=== PATIENT | male | born 1955 | race Caucasian/White ===

== ENCOUNTER → 2017-11-19 11:09 | Outpatient (CLI) | payer BC, SELFPAY ==
--- NOTE | 2017-11-19 11:11 | DI.RAD.S_ITS ---
PROCEDURE: XR FOOT LT MIN 3V INDICATIONS: L foot pain three weeks after fall TECHNIQUE: 3 views of the foot were acquired. COMPARISON: None. FINDINGS: Bones: No fractures or dislocations. No suspicious bony lesions. Soft tissues: No tibiotalar joint effusion. Achilles tendon appears normal. IMPRESSION: No displaced fracture seen. If there is continued pain, followup exam or additional imaging such as MRI or CT could be performed for further assessment. Dictated by: Shaw Rojas [facility] Interpreted: Dustin Rothman MD on 11/19/2017 at 11:44 Approved by: Dsutin Rothman M.D. on 11/19/2017 at 13:45
== END ==
PROVIDERS: Family Provider Internal Medicine; PCP Internal Medicine; Visit Provider Nurse Practitioner Family
DX: M79.672 Pain in left foot (principal)
CPT/HCPCS: 73630

== ENCOUNTER → 2017-12-05 09:26 | Outpatient (CLI) | payer BC, SELFPAY ==
[2017-12-05 10:16] LABS: Alanine Aminotransferase 33 IU/L (21-72); Albumin 4.1 g/dL (3.5-5.0); Albumin Globulin Ratio 1.4 (1.0-2.8); Alkaline Phosphatase 80 U/L (38-126); Aspartate Aminotransferase 23 IU/L (17-59); Bilirubin Total 0.6 mg/dL (0.2-1.3); Blood Urea Nitrogen 16 mg/dL (9-20); Calcium 9.7 mg/dL (8.4-10.2); Carbon Dioxide 30 mmol/L (22-32); Chloride 103 mmol/L (98-107); Cholesterol 143 mg/dL (140-199); Estimated Glomerular Filt Rate > 60.0 mL/min (>60); Globulin 2.9 g/dL (1.7-4.1); Glucose 99 mg/dL (80-110); HDL Cholesterol 52 mg/dL (40-60); HEMOLYSIS < 15 (0-50); LDL Cholesterol Calculated 62 mg/dL (<100); Potassium 4.9 mmol/L (3.4-5.1); Sodium 143 mmol/L (137-145); Triglycerides 143 mg/dL (35-150)
[2017-12-05 10:46] LABS: Prostate Specific Antigen Scrn 1.82 ng/mL (0.1-4.0)
== END ==
PROVIDERS: Family Provider Internal Medicine; PCP Internal Medicine; Visit Provider Internal Medicine
DX: E78.2 Mixed hyperlipidemia (principal); I10 Essential (primary) hypertension; I25.10 Atherosclerotic heart disease of native coronary artery without angina pectoris; Z12.5 Encounter for screening for malignant neoplasm of prostate
CPT/HCPCS: 36415; 80053; 80061; G0103

== ENCOUNTER → 2018-11-26 08:11 | Outpatient (CLI) | payer BC, SELFPAY ==
[2018-11-26 09:11] LABS: Add Manual Diff / Slide Review NO; Basophils Absolute Auto 0 /uL (0-100); Basophils Percent Auto 0.4 % (0-2); Eosinophils Absolute Auto 200 /uL (0-450); Eosinophils Percent Auto 3.4 % (2-4); Hematocrit 46.9 % (41-53); Lymphocytes Absolute Auto 1500 /uL (1100-4500); Mean Corpuscular HGB Conc 34.2 % (30-36); Mean Corpuscular Hemoglobin 30.7 PG (26-34); Mean Corpuscular Volume 89.8 fL (80-100); Monocytes Absolute Auto 700 /uL (0-900); Monocytes Percent Auto 12.2 % (3-14); Neutrophils Absolute Auto 3000 /uL (1500-7000); Platelet Count 230 X10^3/uL (150-400); Red Blood Cell Count 5.22 X10^6/uL (4.5-5.9); Red Cell Distribution Width 13.8 % (11.6-14.8); White Blood Cell Count 5.3 X10^3/uL (4.5-11.0)
[2018-11-26 09:41] LABS: BUN Creatinine Ratio 15.8 (6-22); Blood Urea Nitrogen 19 mg/dL (9-20); Calcium 9.9 mg/dL (8.4-10.2); Carbon Dioxide 30 mmol/L (22-32); Chloride 100 mmol/L (98-107); Estimated Glomerular Filt Rate > 60.0 mL/min (>60); Glucose 97 mg/dL (80-110); HEMOLYSIS < 15 (0-50); Potassium 4.2 mmol/L (3.4-5.1); Sodium 140 mmol/L (137-145)
== END ==
PROVIDERS: PCP Internal Medicine; Visit Provider Internal Medicine
DX: E78.2 Mixed hyperlipidemia (principal); I10 Essential (primary) hypertension; I25.10 Atherosclerotic heart disease of native coronary artery without angina pectoris
CPT/HCPCS: 36415; 80048; 85025

== ENCOUNTER → 2018-12-08 11:22 | Outpatient (CLI) | payer BC, SELFPAY ==
[2018-12-08 13:13] LABS: Prostate Specific Antigen Scrn 2.08 ng/mL (0.1-4.0)
== END ==
PROVIDERS: PCP Internal Medicine; Visit Provider Internal Medicine
DX: Z12.5 Encounter for screening for malignant neoplasm of prostate (principal)
CPT/HCPCS: 36415; G0103

== ENCOUNTER → 2018-12-10 08:37 | Outpatient (CLI) | payer BC, SELFPAY ==
--- NOTE | 2018-12-10 08:38 | DI.US.S_ITS ---
PROCEDURE: US CAROTID DOPPLER BI INDICATIONS: PARASTHESIA TECHNIQUE: Color and pulse Doppler interrogation was performed of both carotid systems, with image documentation and velocity measurements. COMPARISON: None. FINDINGS: Stenosis calculations are based on SRU (Society of Radiologists in Ultrasound) criteria. Right side: Brachial blood pressure: 132/90 mm Hg. Common carotid artery peak systolic velocity: 82 cm/sec. Internal carotid artery peak systolic velocity: 55 cm/sec. Internal carotid artery end diastolic velocity: 22 cm/sec. External carotid artery peak systolic velocity: 78 cm/sec. ICA/CCA peak systolic ratio: 0.7. Dawson scale imaging description: Mild echogenic plaques at the bifurcation Percent internal carotid artery stenosis: Less than 50%. Vertebral artery: Flow direction is antegrade. Left side: Brachial blood pressure: 123/87 mm Hg. Common carotid artery peak systolic velocity: 95 cm/sec. Internal carotid artery peak systolic velocity: 67 cm/sec. Internal carotid artery end diastolic velocity: 26 cm/sec. External carotid artery peak systolic velocity: 85 cm/sec. ICA/CCA peak systolic ratio: 0.7 Dawson scale imaging description: Mild echogenic plaques at the bifurcation. Percent internal carotid artery stenosis: Less than 50%. Vertebral artery: Flow direction is antegrade. IMPRESSION: 1. Less than 50% internal carotid artery stenosis bilaterally. Dictated by: Alex Rodriguez M.D. on 12/10/2018 at 11:15 Approved by: Alex Rodriguez M.D. on 12/10/2018 at 11:18
== END ==
PROVIDERS: PCP Internal Medicine; Visit Provider Internal Medicine
DX: I65.23 Occlusion and stenosis of bilateral carotid arteries (principal); I25.10 Atherosclerotic heart disease of native coronary artery without angina pectoris; R20.2 Paresthesia of skin
CPT/HCPCS: 93880

== ENCOUNTER → 2019-01-11 10:24 | Outpatient (CLI) | payer BC, SELFPAY ==
--- NOTE | 2019-01-11 10:26 | DI.NM.S_ITS ---
PROCEDURE: UT DEVONTE PERF SPECT REST & STR Rest and exercise myocardial perfusion SPECT with gated imaging and ejection fraction RADIOPHARMACEUTICAL: 11.6 mCi Tc-99m sestamibi IV at rest and 26.7 mCi Tc-99m sestamibi IV at peak exercise. A two day-protocol was performed. INDICATIONS: dyspnea on exertion TECHNIQUE: Radiopharmaceutical was injected at peak stress test, and also at rest. SPECT images were obtained. SPECT myocardial perfusion images were displayed in short axis, horizontal long axis, and vertical long axis views. Gated images were reviewed using ReferStar software. COMPARISON: [place], [place], MYOCARDIAL PERFUSION, 09/23/2008, 13:44. CARDIAC STRESS: A standard Wero treadmill exercise tolerance test was performed by the patient under the supervision of an attending staff. The patient exercised for 7 minutes and 6 seconds; functional aerobic impairment (MARIO) is +15% suggesting reduced exercise tolerance. Hemodynamic data: There is normal blood pressure and heart rate response to exercise stress. Patient achieved 97% of maximum predicted heart rate at peak exercise. Symptoms: Patient denied chest pain during exercise. EKG: No diagnostic EKG changes of ischemia; frequent PVCs during recovery. FINDINGS: Raw data: There is good myocardial labeling by radiotracer. No significant motion artifacts. Left ventricle function: Gated images demonstrate normal left ventricle wall thickening. No segmental wall motion abnormality. No transient ischemic dilation; TID is 0.66 (normal less than 1.3). The left ventricle resting end-diastolic volume is 66 mL. Left ventricle stress ejection fraction is 83%; normal values are above 45%. Myocardial perfusion: There is a mildly intense fixed defect in the basal inferior wall and basal inferolateral wall that persists on prone imaging suggesting prior infarct. No ischemia. SSS 1. IMPRESSION: Abnormal treadmill nuclear stress test, consistent with prior infarction. No ischemia. 1) There is a mildly intense fixed defect in the basal inferior wall and basal inferolateral wall that persists on prone imaging suggesting prior infarct. No ischemia. SSS 1. 2) Normal left ventricular size, wall motion, and systolic function (EF post stress 83%). 3) No angina during the study. 4) No ECG evidence of ischemia. Frequent PVCs during recovery. 5) Reduced exercise tolerance (10.1 METS, MARIO +15% on active scale). Target heart rate reached. 6) Resting BP 118/76mmHg and max BP 200/96mmHg suggesting higher than normal BP response with exercise. 7) Compared to the nuclear stress test 09/23/2008, no significant change. Dictated by: Michael Dhaliwal MD on 01/11/2019 at 16:43 Approved by: Michael Dhaliwal MD on 01/11/2019 at 16:50
--- NOTE | 2019-01-11 15:29 | PM.TREADMILL ---
Cardiac Stress Test Report Referral & Results Date Patient Seen: 01/11/19 Requesting provider: Ralph Knight Indication: Dyspnea, known coronary disease Rest ECG: Unremarkable Procedure Note: Today following both written and verbal informed consent the patient was exercised according to a standard Wero protocol patient went for a total of 7 minutes 6 seconds achieving a maximum heart rate of 150 for maximum systolic blood pressure of 200. This is approximately 10.1 METS. Exercise was terminated at this point because of targets were met. Patient was also given Cardiolite through a previously started Hep-Lock IV by the diagnostic imaging staff approximately 1 minute prior to the cessation of exercise. There are no ST-T segment changes Patient was quickly hypertensive Normal heart rate response Occasional PVCs including brief runs of ventricular trigeminy Functional aerobic impairment rated about 10% of the sedentary scale Impression: No ECG evidence of ischemia Please see perfusion imaging report for further details regarding possible ischemia Slightly hypertensive response as above Please note: Actual ECG tracings can be found in the PACS system.
== END ==
PROVIDERS: PCP Internal Medicine; Visit Provider Internal Medicine
DX: I25.10 Atherosclerotic heart disease of native coronary artery without angina pectoris (principal); R06.09 Other forms of dyspnea; I25.2 Old myocardial infarction; R94.39 Abnormal result of other cardiovascular function study
CPT/HCPCS: 78452; 93016; 93017; 93018; A9502

== ENCOUNTER → 2020-10-18 09:21 | Outpatient (CLI) | payer BC, SELFPAY ==
[2020-10-18 10:26] LABS: Alanine Aminotransferase 33 IU/L (<50); Albumin 4.2 g/dL (3.5-5.0); Albumin Globulin Ratio 1.4 (1.0-2.8); Alkaline Phosphatase 95 U/L (38-126); Aspartate Aminotransferase 35 IU/L (17-59); BUN Creatinine Ratio 15.8 (6-22); Bilirubin Total 0.6 mg/dL (0.2-1.3); Blood Urea Nitrogen 18 mg/dL (9-20); Calcium 9.8 mg/dL (8.4-10.2); Carbon Dioxide 27 mmol/L (22-32); Chloride 105 mmol/L (98-107); Cholesterol 170 mg/dL (140-199); Estimated Glomerular Filt Rate > 60.0 mL/min (>60); Glucose 103 mg/dL (80-110); HDL Cholesterol 49 mg/dL (40-60); HEMOLYSIS < 15 (0-50); LDL Cholesterol Calculated 88 mg/dL (<100); Potassium 4.6 mmol/L (3.4-5.1); Sodium 138 mmol/L (137-145); Total Protein 7.2 g/dL (6.3-8.2); Triglycerides 164 mg/dL (35-150)
[2020-10-18 10:54] LABS: Prostate Specific Antigen Scrn 1.94 ng/mL (0.1-4.0)
== END ==
PROVIDERS: PCP Internal Medicine; Referring Provider Internal Medicine; Visit Provider Internal Medicine
DX: E78.2 Mixed hyperlipidemia (principal); I10 Essential (primary) hypertension; I25.10 Atherosclerotic heart disease of native coronary artery without angina pectoris; Z12.5 Encounter for screening for malignant neoplasm of prostate
CPT/HCPCS: 36415; 80053; 80061; G0103

== ENCOUNTER → 2022-01-17 08:38 | Outpatient (CLI) | payer MEDICARE, BC, SELFPAY ==
[2022-01-17 10:52] LABS: Alanine Aminotransferase 29 IU/L (<50); Albumin 4.2 g/dL (3.5-5.0); Albumin Globulin Ratio 1.7 (1.0-2.8); Alkaline Phosphatase 88 U/L (38-126); Aspartate Aminotransferase 29 IU/L (17-59); BUN Creatinine Ratio 12.4 (6-22); Bilirubin Total 0.7 mg/dL (0.2-1.3); Blood Urea Nitrogen 14 mg/dL (9-20); Calcium 9.2 mg/dL (8.4-10.2); Carbon Dioxide 27 mmol/L (22-32); Chloride 104 mmol/L (98-107); Cholesterol 147 mg/dL (140-199); Estimated Glomerular Filt Rate > 60 mL/min (>60); Globulin 2.5 g/dL (1.7-4.1); Glucose 94 mg/dL (80-110); HDL Cholesterol 45 mg/dL (40-60); HEMOLYSIS < 15 (0-50); LDL Cholesterol Calculated 70 mg/dL (<100); Potassium 4.3 mmol/L (3.4-5.1); Sodium 139 mmol/L (137-145); Total Protein 6.7 g/dL (6.3-8.2); Triglycerides 161 mg/dL (35-150)
[2022-01-17 11:12] LABS: Prostate Specific Antigen Scrn 1.86 ng/mL (0.1-4.0)
== END ==
PROVIDERS: PCP Internal Medicine; Referring Provider Internal Medicine; Visit Provider Internal Medicine
DX: E78.2 Mixed hyperlipidemia (principal); I10 Essential (primary) hypertension; Z12.5 Encounter for screening for malignant neoplasm of prostate; I25.10 Atherosclerotic heart disease of native coronary artery without angina pectoris
CPT/HCPCS: 36415; 80053; 80061; G0103

== ENCOUNTER → 2023-11-11 09:17 | Outpatient (CLI) | payer MEDICARE, SELFPAY ==
[2023-11-11 10:42] LABS: Alanine Aminotransferase 38 IU/L (<50); Albumin 4.3 g/dL (3.5-5.0); Albumin Globulin Ratio 1.7 (1.0-2.8); Alkaline Phosphatase 86 U/L (38-126); Aspartate Aminotransferase 35 IU/L (17-59); BUN Creatinine Ratio 16.8 (6-22); Blood Urea Nitrogen 18 mg/dL (9-20); Calcium 9.4 mg/dL (8.4-10.2); Carbon Dioxide 27 mmol/L (22-32); Chloride 106 mmol/L (98-107); Cholesterol 143 mg/dL (140-199); Estimated Glomerular Filt Rate > 60 mL/min (>60); Globulin 2.5 g/dL (1.7-4.1); Glucose 106 mg/dL (80-110); HDL Cholesterol 52 mg/dL (40-60); HEMOLYSIS < 15 (0-50); LDL Cholesterol Calculated 59 mg/dL (<100); Potassium 5.1 mmol/L (3.4-5.1); Sodium 139 mmol/L (137-145); Total Protein 6.8 g/dL (6.3-8.2); Triglycerides 159 mg/dL (35-150)
[2023-11-11 11:09] LABS: Prostate Specific Antigen Scrn 2.19 ng/mL (0.1-4.0)
== END ==
LOC: LAB 09:19
PROVIDERS: PCP Internal Medicine; Referring Provider Internal Medicine; Visit Provider Internal Medicine
DX: Z12.5 Encounter for screening for malignant neoplasm of prostate (principal); E78.2 Mixed hyperlipidemia; I10 Essential (primary) hypertension; I25.10 Atherosclerotic heart disease of native coronary artery without angina pectoris
CPT/HCPCS: 36415; 80053; 80061; G0103

== ENCOUNTER → 2024-11-18 07:57 | Outpatient (CLI) | payer MEDICARE, SELFPAY ==
[2024-11-18 09:42] LABS: Alanine Aminotransferase 39 IU/L (<50); Albumin 4.3 g/dL (3.5-5.0); Albumin Globulin Ratio 1.9 (1.0-2.8); Alkaline Phosphatase 83 U/L (38-126); Aspartate Aminotransferase 32 IU/L (17-59); Bilirubin Total 0.7 mg/dL (0.2-1.3); Blood Urea Nitrogen 20 mg/dL (9-20); Calcium 9.4 mg/dL (8.4-10.2); Carbon Dioxide 23 mmol/L (22-32); Chloride 106 mmol/L (98-107); Cholesterol 152 mg/dL (140-199); Estimated Glomerular Filt Rate > 60 mL/min (>60); Globulin 2.3 g/dL (1.7-4.1); Glucose 127 mg/dL (70-99); HDL Cholesterol 47 mg/dL (40-60); HEMOLYSIS < 15 (0-50); LDL Cholesterol Calculated 83 mg/dL (<100); Potassium 4.3 mmol/L (3.4-5.1); Sodium 139 mmol/L (137-145); Total Protein 6.6 g/dL (6.3-8.2); Triglycerides 108 mg/dL (35-150)
[2024-11-18 10:15] LABS: Prostate Specific Antigen Scrn 2.44 ng/mL (0.1-4.0)
== END ==
PROVIDERS: PCP Internal Medicine; Referring Provider Internal Medicine; Visit Provider Internal Medicine
DX: Z12.5 Encounter for screening for malignant neoplasm of prostate (principal); I10 Essential (primary) hypertension; E78.2 Mixed hyperlipidemia; I25.10 Atherosclerotic heart disease of native coronary artery without angina pectoris
CPT/HCPCS: 36415; 80053; 80061; G0103